=== PATIENT | male | born 1945 | race Caucasian/White ===

== ENCOUNTER 2023-11-04 18:19 | Inpatient (IN) | payer MEDICARE, OTHER ==
[2023-11-04 19:08] LABS: BASOPHILS ABSOLUTE AUTO 0.03 K/uL (0.00-0.10); BASOPHILS PERCENT AUTO 0.4 % (0.1-1.3); EOSINOPHILS ABSOLUTE AUTO 0.05 K/uL (0.00-0.40); EOSINOPHILS PERCENT AUTO 0.7 % (0.0-5.4); HEMATOCRIT 56.5 % (38.4-49.7); HEMOGLOBIN 17.9 g/dL (12.9-16.9); IMMATURE GRAN ABSOLUTE AUTO 0.03 K/uL (0.00-0.23); IMMATURE GRAN PERCENT AUTO 0.4 % (0.0-0.7); LYMPHOCYTES ABSOLUTE AUTO 1.19 K/uL (0.8-3.3); LYMPHOCYTES PERCENT AUTO 15.7 % (11.4-47.7); MEAN CORPUSCULAR HEMOGLOBIN 31.2 pg (31.6-35.5); MEAN CORPUSCULAR HGB CONC 31.7 g/dL (31.6-35.5); MEAN CORPUSCULAR VOLUME 98.6 fL (81.4-99.0); MONOCYTES PERCENT AUTO 6.6 % (3.3-12.6); NEUTROPHILS ABSOLUTE AUTO 5.79 K/uL (1.0-7.6); NEUTROPHILS PERCENT AUTO 76.2 % (40.0-78.1); PLATELET COUNT,PLT 160 K/uL (130-375); RED BLOOD CELL COUNT 5.73 M/uL (4.14-5.76); WHITE BLOOD CELL COUNT,WBC 7.6 K/uL (3.2-11.0)
[2023-11-04 19:28] LABS: A/G RATIO 0.8 (1.2-2.2); ALANINE AMINOTRANSFERASE,ALT 28 U/L (12-78); ALBUMIN 3.5 g/dL (3.4-5.0); ALKALINE PHOSPHATASE 60 U/L (46-116); ANION GAP 6.6 mmol/L (5.0-14.0); ASPARTATE AMNIOTRANSFERASE,AST 28 U/L (15-37); BILIRUBIN TOTAL 0.5 mg/dL (0.2-1.0); BLOOD UREA NITROGEN,BUN 27 mg/dL (7-18); CALCIUM 9.1 mg/dL (8.5-10.1); CARBON DIOXIDE,CO2 35 mmol/L (21-32); CHLORIDE,CL 101 mmol/L (100-108); CREATININE 1.3 mg/dL (0.8-1.3); EST CRCL DRUG DOSING (CG) 51.22 mL/min; ESTIMATED GFR 56 mL/min (>60); GLUCOSE RANDOM 123 mg/dL (74-106); POTASSIUM,K 4.6 mmol/L (3.6-5.2); PROTEIN TOTAL,TP 7.7 g/dL (6.4-8.2); SODIUM,NA 138 mmol/L (140-148)
[2023-11-04 19:39] LABS: APPEARANCE,URINE CLEAR (CLEAR); BILIRUBIN,URINE NEGATIVE (NEGATIVE); COLOR,URINE YELLOW (YELLOW); GLUCOSE,URINE NEGATIVE (NEGATIVE); KETONES,URINE NEGATIVE (NEGATIVE); LEUKOCYTE ESTERASE,URINE NEGATIVE (NEGATIVE); NITRITE,URINE NEGATIVE (NEGATIVE); OCCULT BLOOD,URINE TRACE-INTACT (NEGATIVE); PH,URINE 5.5 (5.0-8.0); PROTEIN,URINE >=300 mg/dL (NEGATIVE)
[2023-11-04 19:44] LABS: AMORPHOUS SEDIMENT,URINE NOT SEEN; BACTERIA,URINE NOT SEEN; EPITHELIAL CELLS,URINE RARE; MUCUS,URINE RARE; RBC,URINE 0-5 (0-5); WBC,URINE 0-5 (0-5)
[2023-11-04] MEDS ORDERED: Albuterol 0.083% 2.5 MG/3 ML Neb Soln NEB PRN (21:46)
[2023-11-04] MEDS ORDERED: Albuterol/Ipratropium 3.0-0.5 MG/3 ML Neb Soln NEB PRN (21:46)
[2023-11-04] MEDS ORDERED: Docusate Sodium 100 MG Cap PO PRN (21:46)
[2023-11-04] MEDS ORDERED: Morphine 2 MG/ML SYRINGE IVPUSH PRN (21:46)
[2023-11-04] MEDS ORDERED: Sodium Chloride 0.9% 500 ML IV SCH (21:46)
[2023-11-04] MEDS ORDERED: Bisacodyl 5 MG Tab PO PRN (21:46)
[2023-11-04] MEDS ORDERED: Naloxone 0.4 MG/ML SDV IVPUSH PRN (21:46)
[2023-11-04] MEDS ORDERED: Pantoprazole 40 MG Vial IV SCH (21:46)
[2023-11-04] MEDS ORDERED: Silver Sulfadiazine 1% Crm 50 GM Tube TOP PRN (21:51)
[2023-11-04] MEDS: Acetaminophen 500 MG Tab PO SCH (22:09)
[2023-11-04] MEDS: oxyCODONE 5 MG Tab PO PRN (22:09)
[2023-11-04] MEDS: diphenhydrAMINE 25 MG Cap PO SCH (22:09)
[2023-11-04] MEDS: ceFAZolin 1 GM in Sodium Chloride 0.9% 50 ML IV SCH (22:24)
[2023-11-05] MEDS: ceFAZolin 1 GM in Sodium Chloride 0.9% 50 ML IV SCH (05:53)
[2023-11-05 06:20] LABS: BASOPHILS ABSOLUTE AUTO 0.03 K/uL (0.00-0.10); BASOPHILS PERCENT AUTO 0.4 % (0.1-1.3); EOSINOPHILS ABSOLUTE AUTO 0.09 K/uL (0.00-0.40); EOSINOPHILS PERCENT AUTO 1.2 % (0.0-5.4); IMMATURE GRAN PERCENT AUTO 0.3 % (0.0-0.7); LYMPHOCYTES PERCENT AUTO 20.7 % (11.4-47.7); MEAN CORPUSCULAR HEMOGLOBIN 31.2 pg (31.6-35.5); MEAN CORPUSCULAR HGB CONC 31.5 g/dL (31.6-35.5); MEAN CORPUSCULAR VOLUME 99.2 fL (81.4-99.0); MONOCYTES ABSOLUTE AUTO 0.57 K/uL (0.20-0.90); MONOCYTES PERCENT AUTO 7.9 % (3.3-12.6); NEUTROPHILS ABSOLUTE AUTO 5.03 K/uL (1.0-7.6); NEUTROPHILS PERCENT AUTO 69.5 % (40.0-78.1); PLATELET COUNT,PLT 146 K/uL (130-375); RED BLOOD CELL COUNT 6.05 M/uL (4.14-5.76); WHITE BLOOD CELL COUNT,WBC 7.2 K/uL (3.2-11.0)
[2023-11-05 06:34] LABS: CALCIUM 8.9 mg/dL (8.5-10.1); CREATININE 1.2 mg/dL (0.8-1.3); EST CRCL DRUG DOSING (CG) 55.49 mL/min
[2023-11-05 06:36] LABS: ANION GAP 11.6 mmol/L (5.0-14.0); POTASSIUM,K 5.6 mmol/L (3.6-5.2)
[2023-11-05 06:38] LABS: HEMOGLOBIN 18.9 g/dL (12.9-16.9); IMMATURE GRAN ABSOLUTE AUTO 0.02 K/uL (0.00-0.23)
[2023-11-05] MEDS ORDERED: Sodium Chloride 0.9% 1,000 ML IV ONE (06:46)
[2023-11-05] MEDS ORDERED: Sodium Chloride 0.9% 1,000 ML IV SCH (07:00)
[2023-11-05] MEDS: Insulin Lispro 100 Unit/ML 3 ML KwikPen SUBCUT SCH ×4 (08:00→21:24)
[2023-11-05] MEDS ORDERED: Hydrochlorothiazide/Triamterene 25-37.5 Tab PO SCH (09:00)
[2023-11-05] MEDS: Tamsulosin 0.4 MG Cap.ER PO SCH (09:14)
[2023-11-05] MEDS: Aspirin 81 MG Tab.Chew PO SCH (09:14)
[2023-11-05] MEDS: Enoxaparin 40 MG/0.4 ML Syringe SUBCUT SCH (09:14)
[2023-11-05] MEDS: Multivitamins with Iron/Calcium/Folic Acid/Minerals Tab PO SCH (09:14)
[2023-11-05] MEDS ORDERED: Furosemide 40 MG/4 ML VIAL IVPUSH ONE (12:15)
[2023-11-05 12:20] LABS: BASOPHILS PERCENT AUTO 0.2 % (0.1-1.3); EOSINOPHILS ABSOLUTE AUTO 0.03 K/uL (0.00-0.40); EOSINOPHILS PERCENT AUTO 0.4 % (0.0-5.4); HEMATOCRIT 57.5 % (38.4-49.7); HEMOGLOBIN 17.7 g/dL (12.9-16.9); IMMATURE GRAN ABSOLUTE AUTO 0.08 K/uL (0.00-0.23); LYMPHOCYTES ABSOLUTE AUTO 0.87 K/uL (0.8-3.3); LYMPHOCYTES PERCENT AUTO 10.4 % (11.4-47.7); MEAN CORPUSCULAR HEMOGLOBIN 30.7 pg (31.6-35.5); MEAN CORPUSCULAR HGB CONC 30.8 g/dL (31.6-35.5); MEAN CORPUSCULAR VOLUME 99.8 fL (81.4-99.0); MONOCYTES ABSOLUTE AUTO 0.58 K/uL (0.20-0.90); MONOCYTES PERCENT AUTO 6.9 % (3.3-12.6); NEUTROPHILS ABSOLUTE AUTO 6.78 K/uL (1.0-7.6); NEUTROPHILS PERCENT AUTO 81.1 % (40.0-78.1); PLATELET COUNT,PLT 154 K/uL (130-375); RED BLOOD CELL COUNT 5.76 M/uL (4.14-5.76); WHITE BLOOD CELL COUNT,WBC 8.4 K/uL (3.2-11.0)
[2023-11-05 12:21] LABS: BASOPHILS ABSOLUTE AUTO 0.02 K/uL (0.00-0.10)
[2023-11-05 12:34] LABS: CALCIUM 8.8 mg/dL (8.5-10.1); CREATININE 1.3 mg/dL (0.8-1.3); EST CRCL DRUG DOSING (CG) 51.22 mL/min; POTASSIUM,K 4.9 mmol/L (3.6-5.2)
[2023-11-05 12:36] LABS: ANION GAP 6.9 mmol/L (5.0-14.0)
[2023-11-05] MEDS ORDERED: ceFAZolin 1 GM in Premix Bag 1 BAG IV SCH (14:00)
[2023-11-05] MEDS: oxyCODONE 5 MG Tab PO PRN (17:09)
[2023-11-05] MEDS: Furosemide 20 MG/2 ML VIAL IVPUSH SCH (19:23)
[2023-11-05] MEDS ORDERED: Metoprolol Succinate 50 MG Tab.ER PO SCH (21:00)
[2023-11-05] MEDS ORDERED: Pantoprazole 40 MG Tab.CR PO SCH (21:00)
[2023-11-05] MEDS: Acetaminophen 500 MG Tab PO SCH (21:25)
[2023-11-05] MEDS: diphenhydrAMINE 25 MG Cap PO SCH (21:28)
[2023-11-06 06:37] LABS: BASOPHILS PERCENT AUTO 0.2 % (0.1-1.3); EOSINOPHILS ABSOLUTE AUTO 0.07 K/uL (0.00-0.40); EOSINOPHILS PERCENT AUTO 0.9 % (0.0-5.4); HEMATOCRIT 57.6 % (38.4-49.7); HEMOGLOBIN 17.8 g/dL (12.9-16.9); IMMATURE GRAN ABSOLUTE AUTO 0.05 K/uL (0.00-0.23); IMMATURE GRAN PERCENT AUTO 0.6 % (0.0-0.7); LYMPHOCYTES ABSOLUTE AUTO 0.84 K/uL (0.8-3.3); LYMPHOCYTES PERCENT AUTO 10.3 % (11.4-47.7); MEAN CORPUSCULAR HEMOGLOBIN 30.8 pg (31.6-35.5); MEAN CORPUSCULAR HGB CONC 30.9 g/dL (31.6-35.5); MEAN CORPUSCULAR VOLUME 99.7 fL (81.4-99.0); MONOCYTES ABSOLUTE AUTO 0.62 K/uL (0.20-0.90); MONOCYTES PERCENT AUTO 7.6 % (3.3-12.6); NEUTROPHILS ABSOLUTE AUTO 6.56 K/uL (1.0-7.6); NEUTROPHILS PERCENT AUTO 80.4 % (40.0-78.1); PLATELET COUNT,PLT 155 K/uL (130-375); RED BLOOD CELL COUNT 5.78 M/uL (4.14-5.76); WHITE BLOOD CELL COUNT,WBC 8.2 K/uL (3.2-11.0)
[2023-11-06 06:39] LABS: BASOPHILS ABSOLUTE AUTO 0.02 K/uL (0.00-0.10)
[2023-11-06 06:49] LABS: CREATININE 1.4 mg/dL (0.8-1.3); EST CRCL DRUG DOSING (CG) 47.56 mL/min; POTASSIUM,K 4.7 mmol/L (3.6-5.2)
[2023-11-06 06:50] LABS: ANION GAP 6.7 mmol/L (5.0-14.0)
[2023-11-06] MEDS: Insulin Lispro 100 Unit/ML 3 ML KwikPen SUBCUT SCH ×2 (07:15→11:48)
[2023-11-06] MEDS: Furosemide 20 MG/2 ML VIAL IVPUSH SCH (07:25)
[2023-11-06] MEDS: Aspirin 81 MG Tab.Chew PO SCH (08:27)
[2023-11-06] MEDS: Enoxaparin 40 MG/0.4 ML Syringe SUBCUT SCH (08:27)
[2023-11-06] MEDS: Multivitamins with Iron/Calcium/Folic Acid/Minerals Tab PO SCH (08:27)
[2023-11-06] MEDS: Tamsulosin 0.4 MG Cap.ER PO SCH (08:27)
== END 2023-11-06 13:28 | disposition home or self-care (01) | DRG 301 ==
LOC: JP.ED 18:19 → JP.MS 20:46
PROVIDERS: ADMIT Hospitalist; ATTEND Hospitalist
DX: L03.115 Cellulitis of right lower limb (principal); L03.116 Cellulitis of left lower limb; I87.2 Venous insufficiency (chronic) (peripheral); J44.9 Chronic obstructive pulmonary disease, unspecified; I27.81 Cor pulmonale (chronic); I10 Essential (primary) hypertension; Z66 Do not resuscitate; Z20.822 Contact with and (suspected) exposure to COVID-19; H91.90 Unspecified hearing loss, unspecified ear; H54.7 Unspecified visual loss; N40.0 Benign prostatic hyperplasia without lower urinary tract symptoms; M19.90 Unspecified osteoarthritis, unspecified site; S80.822A Blister (nonthermal), left lower leg, initial encounter; S80.821A Blister (nonthermal), right lower leg, initial encounter; E11.40 Type 2 diabetes mellitus with diabetic neuropathy, unspecified; G89.29 Other chronic pain; M54.9 Dorsalgia, unspecified; F51.01 Primary insomnia; M54.2 Cervicalgia; F43.10 Post-traumatic stress disorder, unspecified; Z79.899 Other long term (current) drug therapy; Z79.84 Long term (current) use of oral hypoglycemic drugs; Z99.81 Dependence on supplemental oxygen; Z79.82 Long term (current) use of aspirin; Z98.890 Other specified postprocedural states; Z11.52 Encounter for screening for COVID-19; Z87.891 Personal history of nicotine dependence; Z85.51 Personal history of malignant neoplasm of bladder
CPT/HCPCS: 36415; 80053; 81001; 85025; 87070; 87205; U0002; 80048; 82947; 87088; 87186; 97116-GP; 97162-GP; A9270-GY; C9113; J0690; J1650; J1815; J1940; J3490; J7030